=== PATIENT | male | born 1970 | race Caucasian/White ===

== ENCOUNTER 2022-11-04 08:54 | Emergency (ER) | payer OTHER ==
[~2022-11-04] VITALS: Ht 172.7 cm; Wt 72.6 kg
[~2022-11-04 08:54] MED LIST: AZIT250 PO; CEPH500 PO; CLIN300 PO; CRUTCH3 USE; GUAPHELA PO; HYDACE5 PO; HYDGUAL120 PO; NAPR500 PO; NAPR550 PO; RANI150 PO; RXHYDACE PO; RXNAPNA550 PO
[2022-11-04 09:01] VITALS: BP 130/80
[2022-11-04] MEDS ORDERED: NASACORT10.8 ML (09:23)
[2022-11-04] MEDS ORDERED: PRED10 PO (09:23)
[2022-11-04] MEDS ORDERED: ZYRTEC10 M2 PO (09:30)
== END 2022-11-04 09:46 | disposition home or self-care (01) ==
LOC: ER 08:54
DX: T78.40XA Allergy, unspecified, initial encounter (principal); R21 Rash and other nonspecific skin eruption; Z88.0 Allergy status to penicillin; Z79.899 Other long term (current) drug therapy; Z79.52 Long term (current) use of systemic steroids; F17.200 Nicotine dependence, unspecified, uncomplicated
CPT/HCPCS: J7512

== ENCOUNTER 2023-01-10 09:39 | Emergency (ER) | payer OTHER ==
[~2023-01-10] VITALS: Ht 172.7 cm; Wt 70.3 kg
[~2023-01-10 09:39] MED LIST changes: +NASACORT10.8 ML; +PRED10 PO; +ZYRTEC10 M2 PO
[2023-01-10 09:45] VITALS: BP 140/77
[2023-01-10] MEDS ORDERED: LIDO700A20 TOP (11:33)
[2023-01-10] MEDS ORDERED: TRAM50 PO (11:33)
== END 2023-01-10 11:45 | disposition home or self-care (01) ==
LOC: ER 09:39
DX: S22.31XA Fracture of one rib, right side, initial encounter for closed fracture (principal); F17.210 Nicotine dependence, cigarettes, uncomplicated; Z88.0 Allergy status to penicillin; X50.1XXA Overexertion from prolonged static or awkward postures, initial encounter
CPT/HCPCS: 93005; 93010; 99283-25; A9270

== ENCOUNTER 2023-05-09 09:22 | Emergency (ER) | payer OTHER ==
[~2023-05-09] VITALS: Ht 172.7 cm; Wt 70.3 kg
[~2023-05-09 09:22] MED LIST changes: +LIDO700A20 TOP; +TRAM50 PO
[2023-05-09 10:26] VITALS: BP 173/89
[2023-05-09 11:18] LABS: BASOPHILS ABSOLUTE AUTO 0.06 K/mm3 (0.00-0.23); BASOPHILS PERCENT AUTO 1 % (0-2); EOSINOPHILS ABSOLUTE AUTO 0.14 K/mm3 (0.00-0.68); EOSINOPHILS PERCENT AUTO 2 % (0-6); Hematocrit 48.1 % (37.0-53.0); Hemoglobin 16.2 g/dL (13.5-17.5); IMMATURE GRAN ABSOLUTE AUTO 0.29 K/mm3 (0.00-0.10); IMMATURE GRAN PERCENT AUTO 4 % (0-1); LYMPHOCYTES ABSOLUTE AUTO 2.24 K/mm3 (0.84-5.20); LYMPHOCYTES PERCENT AUTO 31 % (21-46); MONOCYTES PERCENT AUTO 8 % (4-13); Mean Corpuscular HGB 32.3 pg (26.0-34.0); Mean Corpuscular HGB Conc 33.7 g/dL (31.5-36.5); Mean Corpuscular Volume 96 fL (80-100); Mean Platelet Volume 9.2 fL (9.1-12.4); NEUTROPHILS ABSOLUTE AUTO 3.82 K/mm3 (1.96-9.15); NEUTROPHILS PERCENT AUTO 53 % (41-73); Platelet Count 228 K/mm3 (150-400); RDW Coefficient Variation 12.9 % (11.7-14.2); RDW Standard Deviation 46.3 fL (35.1-46.3); Red Blood Cell Count 5.02 M/mm3 (4.30-5.90); White Blood Cell Count 7.15 K/mm3 (4.00-11.30)
[2023-05-09 11:49] LABS: Alanine Aminotransfer (ALT/SGP 25 U/L (12-78); Albumin, Blood 3.9 g/dL (3.4-5.0); Albumin/Globulin Ratio 1.1 (0.8-1.8); Alk Phos 75 U/L (50-136); Anion Gap 2 mmol/L (6-16); Aspartate Aminotrans (AST/SGOT 22 U/L (12-37); Bilirubin, Total 0.3 mg/dL (0.1-1.0); Blood Urea Nitrogen 13 mg/dL (8-24); Bun/Creatinine Ratio 13.9 (12.0-20.0); C-REACTIVE PROTEIN, EXT RANGE <0.290 mg/dL (0.000-0.300); CO2, Blood 27 mmol/L (21-32); Calcium, Blood 8.9 mg/dL (8.5-10.1); Chloride, Blood 107 mmol/L (98-108); Creatinine, Blood 0.93 mg/dL (0.60-1.20); Globulin, Blood 3.6 g/dL (2.2-4.0); Glomerular Filtration Rate 99 (60-); Glucose, Blood 99 mg/dL (70-99); Potassium, Blood 4.5 mmol/L (3.5-5.5); Sodium, Blood 136 mmol/L (136-145); Total Protein, Blood 7.5 g/dL (6.4-8.2)
[2023-05-09] MEDS ORDERED: ALEVAZOL56.7 G1 TOP (12:09)
== END 2023-05-09 12:21 | disposition home or self-care (01) ==
LOC: ER 09:22
PROVIDERS: Emergency Medicine
DX: B35.4 Tinea corporis (principal); Z88.0 Allergy status to penicillin; Z79.899 Other long term (current) drug therapy; F17.210 Nicotine dependence, cigarettes, uncomplicated
CPT/HCPCS: 80053; 85025; 86140; 99283

== ENCOUNTER 2023-11-07 14:17 | Emergency (ER) | payer OTHER ==
[~2023-11-07] VITALS: Ht 170.2 cm; Wt 72.6 kg
[~2023-11-07 14:17] MED LIST changes: +ALEVAZOL56.7 G1 TOP
[2023-11-07] MEDS ORDERED: Acetaminophen 500 MG Tab PO ONE (15:50)
[2023-11-07] MEDS ORDERED: Ketorolac Tromethamine 30mg Vial IM ONE (15:50)
[2023-11-07 16:00] VITALS: BP 108/74
== END 2023-11-07 16:08 | disposition home or self-care (01) ==
LOC: ER 14:17
DX: M17.11 Unilateral primary osteoarthritis, right knee (principal); M25.562 Pain in left knee; M25.511 Pain in right shoulder; Z88.0 Allergy status to penicillin; Z79.899 Other long term (current) drug therapy
CPT/HCPCS: 96372; 99282-25; A9270; J1885

== ENCOUNTER 2024-04-27 08:47 | Day surgery (SDC) | payer OTHER ==
[~2024-04-27] VITALS: Ht 170.2 cm; Wt 69.6 kg
[~2024-04-27 08:47] MED LIST changes: +Bupivacaine 0.5% HCl 5 MG/ML 30MLVIAL ONE; +CYCL10 PO; +Dexamethasone Sod Phos 10 MG/ML 1ML VIAL ONE; +FentaNYL Citrate 50 MCG/ML 2 ML Injection ONE; +IBUP200 PO; +Ketorolac Tromethamine 30mg Vial ONE; +MASOPHEN500 M3 PO; +Midazolam HCl 1MG / ML 2ML Vial ONE; +Ondansetron HCl 2 MG / ML 2ML Vial ONE; +Rocuronium Bromide 10 MG/ML 5ML Injection IV ONE; +Sugammadex Sodium 200 MG/2ML SDV (100 MG/ML) ONE; +TAMS.4ER PO; +propofoL 20 ML IV ONE
[2024-04-27] MEDS ORDERED: Tranexamic Acid 100 ML IV ONE (08:57)
[2024-04-27] MEDS ORDERED: Lactated Ringer's 1,000 ML IV ONE ×2 (09:31→11:55)
[2024-04-27] MEDS ORDERED: CeFAZolin Sodium 2,000 MG VIAL ONE (10:24)
[2024-04-27] MEDS ORDERED: NS 50 ML IV ONE (10:25)
--- NOTE | 2024-04-27 10:55 | NUR ---
04/27/24 1055 Doc Olmstead, BLOCK TIMEOUT 1040 BLOCK STARTED 1046 BLOCK FINISHED 1050
[2024-04-27] MEDS ORDERED: Lidocaine 1%-Epineph 1:100000 20 ML MDV INJ ONE (11:23)
[2024-04-27] MEDS ORDERED: EPINEPhrine HCl 1 MG/ML 1ML Amp XX ONE (11:23)
--- NOTE | 2024-04-27 11:33 | NUR ---
04/27/24 1133 Elma Akers 1 GM STARTED AT [address] ANDREWS.
[2024-04-27] MEDS ORDERED: Rocuronium Bromide 10 MG/ML 5ML Injection IV ONE (11:56)
--- NOTE | 2024-04-27 13:27 | NUR ---
04/27/24 1327 Rachel Hager PT UP TO CHAIR 1310 , HR IN 40S. PT STS NORMAL FOR HIM TO BE LOW 40S, 50S.
[2024-04-27 13:30] VITALS: BP 114/72
== END 2024-04-27 14:00 | disposition home or self-care (01) ==
LOC: ORSCSDS 08:47
PROVIDERS: Orthopaedic Surgery Sports Medicine
PROC: 0RNJ4ZZ Release Right Shoulder Joint, Percutaneous Endoscopic Approach (ICD-10-PCS; principal; 2024-04-27 10:30)
PROC: 0R5J4ZZ Destruction of Right Shoulder Joint, Percutaneous Endoscopic Approach (ICD-10-PCS; principal; 2024-04-27 10:30)
PROC: 0LM14ZZ Reattachment of Right Shoulder Tendon, Percutaneous Endoscopic Approach (ICD-10-PCS; principal; 2024-04-27 10:30)
DX: M75.121 Complete rotator cuff tear or rupture of right shoulder, not specified as traumatic (principal); F17.210 Nicotine dependence, cigarettes, uncomplicated
CPT/HCPCS: C1713; J0171; J0690; J1100; J1885; J2250; J2405; J2704; J3010; J7120

== ENCOUNTER 2024-08-21 08:54 | Emergency (ER) | payer OTHER ==
[~2024-08-21] VITALS: Ht 167.6 cm; Wt 72.6 kg
[~2024-08-21 08:54] MED LIST changes: -Bupivacaine 0.5% HCl 5 MG/ML 30MLVIAL ONE; -Dexamethasone Sod Phos 10 MG/ML 1ML VIAL ONE; -FentaNYL Citrate 50 MCG/ML 2 ML Injection ONE; -Ketorolac Tromethamine 30mg Vial ONE; -Midazolam HCl 1MG / ML 2ML Vial ONE; -Ondansetron HCl 2 MG / ML 2ML Vial ONE; -Rocuronium Bromide 10 MG/ML 5ML Injection IV ONE; -Sugammadex Sodium 200 MG/2ML SDV (100 MG/ML) ONE; -propofoL 20 ML IV ONE
[2024-08-21 09:13] LABS: BASOPHILS ABSOLUTE AUTO 0.05 K/mm3 (0.00-0.23); BASOPHILS PERCENT AUTO 1 % (0-2); EOSINOPHILS ABSOLUTE AUTO 0.21 K/mm3 (0.00-0.68); EOSINOPHILS PERCENT AUTO 4 % (0-6); Hematocrit 45.7 % (37.0-53.0); Hemoglobin 15.8 g/dL (13.5-17.5); IMMATURE GRAN ABSOLUTE AUTO 0.06 K/mm3 (0.00-0.10); IMMATURE GRAN PERCENT AUTO 1 % (0-1); LYMPHOCYTES PERCENT AUTO 38 % (21-46); MONOCYTES ABSOLUTE AUTO 0.49 K/mm3 (0.16-1.47); MONOCYTES PERCENT AUTO 9 % (4-13); Mean Corpuscular HGB 31.6 pg (26.0-34.0); Mean Corpuscular HGB Conc 34.6 g/dL (31.5-36.5); Mean Corpuscular Volume 91 fL (80-100); Mean Platelet Volume 8.7 fL (9.1-12.4); NEUTROPHILS ABSOLUTE AUTO 2.75 K/mm3 (1.96-9.15); NEUTROPHILS PERCENT AUTO 48 % (41-73); Platelet Count 270 K/mm3 (150-400); RDW Coefficient Variation 12.4 % (11.7-14.2); RDW Standard Deviation 41.9 fL (35.1-46.3); White Blood Cell Count 5.76 K/mm3 (4.00-11.30)
[2024-08-21 09:37] LABS: Albumin, Blood 4.1 g/dL (3.4-5.0); Albumin/Globulin Ratio 1.1 (0.8-1.8); Bilirubin, Total 0.6 mg/dL (0.1-1.0); Bun/Creatinine Ratio 13.3 (12.0-20.0); Calcium, Blood 9.5 mg/dL (8.5-10.1); Creatinine, Blood 0.9 mg/dL (0.60-1.20); Globulin, Blood 3.8 g/dL (2.2-4.0); Potassium, Blood 4.5 mmol/L (3.5-5.5); Total Protein, Blood 7.9 g/dL (6.4-8.2)
[2024-08-21] MEDS ORDERED: Acetaminophen 325 MG TABLET PO ONE (11:50)
[2024-08-21 12:13] VITALS: BP 108/76
== END 2024-08-21 12:13 | disposition home or self-care (01) ==
LOC: ER 08:54
PROVIDERS: Physician Assistant
DX: M94.0 Chondrocostal junction syndrome [Tietze] (principal); F17.200 Nicotine dependence, unspecified, uncomplicated; Z88.0 Allergy status to penicillin
CPT/HCPCS: 71046; 80053; 83880; 84443; 84484; 85025; 93005; 93010; 99284-25

== ENCOUNTER 2024-10-07 06:19 | Day surgery (SDC) | payer OTHER ==
[~2024-10-07] VITALS: Ht 170.2 cm; Wt 70.2 kg
[2024-10-07] VITALS (13 sets, daily range): BP systolic 113–188; BP diastolic 66–93
[~2024-10-07 06:19] MED LIST changes: +DULO30 PO; +Dexamethasone Sod Phos 10 MG/ML 1ML VIAL ONE; +Dexmedetomidine HCL 200 MCG / 2 ML ONE; +Ketorolac Tromethamine 30mg Vial ONE; +Lidocaine HCl 2% 20 ML MDV ONE; +Ondansetron HCl 2 MG / ML 2ML Vial ONE; +Ropivacaine 0.5% HCL/PF 5 MG/ML 30ML Vial ONE; +propofoL 50 ML IV ONE
[2024-10-07] MEDS ORDERED: Lactated Ringer's 1,000 ML IV SCH (06:20)
[2024-10-07] MEDS ORDERED: CeFAZolin Sodium 2,000 MG in NS 100 ML IV SCH (06:20)
[2024-10-07] MEDS ORDERED: TAMS.4ER PO (06:32)
[2024-10-07] MEDS ORDERED: Tranexamic Acid 100 ML IV SCH (06:34)
[2024-10-07] MEDS ORDERED: Acetaminophen 500 MG Tab PO SCH (06:37)
[2024-10-07] MEDS ORDERED: Metoclopramide HCl 5MG / ML 2ML Vial IV PRN (06:45)
[2024-10-07] MEDS ORDERED: FentaNYL Citrate 50 MCG/ML 2 ML Injection IV PRN ×2 (06:45)
[2024-10-07] MEDS ORDERED: HYDROmorphone HCl/Pf 1MG SYR IV PRN ×2 (06:45)
[2024-10-07] MEDS ORDERED: CeFAZolin Sodium 2,000 MG VIAL ONE (06:48)
[2024-10-07] MEDS ORDERED: DiphenhydrAMINE HCl 50 MG/ML 1ML Vial IV PRN (06:50)
[2024-10-07] MEDS ORDERED: Albuterol 2.5 MG/3 ML VIAL INH PRN (06:50)
[2024-10-07] MEDS ORDERED: Ondansetron HCl 2 MG / ML 2ML Vial IV PRN (06:50)
[2024-10-07] MEDS ORDERED: ePHEDrine Sulfate 50 MG/ML 1ML Injection IV PRN (06:50)
[2024-10-07] MEDS ORDERED: Lidocaine 1%-Epineph 1:200000 30 ML SDV ONE (07:18)
[2024-10-07] MEDS ORDERED: EPINEPhrine HCl 1 MG / ML 30ML Vial ONE (07:18)
[2024-10-07] MEDS ORDERED: HYDROmorphone HCl/Pf 1MG SYR ONE ×2 (07:19→09:19)
[2024-10-07] MEDS ORDERED: Metoclopramide HCl 5MG / ML 2ML Vial ONE (07:41)
[2024-10-07] MEDS ORDERED: Ketamine HCl 100 MG / ML 5ML Vial ONE (07:43)
[2024-10-07] MEDS ORDERED: Glycopyrrolate 0.2 MG/ML 5ML VIAL ONE (07:43)
[2024-10-07] MEDS ORDERED: ePHEDrine Sulfate 50 MG/ML 1ML Injection ONE (07:48)
[2024-10-07] MEDS ORDERED: FentaNYL Citrate 50 MCG/ML 2 ML Injection ONE (09:05)
[2024-10-07] MEDS ORDERED: OxyCODONE HCL 5 MG TAB PO PRN (09:40)
--- NOTE | 2024-10-07 10:31 | NUR ---
Discharge instructions reviewed with patient. Patient verbalizes understanding. Copy given to patient to take home. Abilio-wrap c/d/i. Cap refill <3 sec. Polar pack sent with pt. Crutches to be picked up at 's office. Prescription sent electronically to [facility]. Patient States Post-Procedure ride home has been arranged. Discharged via wheelchair to private car for ride home.
== END 2024-10-07 10:35 | disposition home or self-care (01) ==
LOC: ORSCMMR 06:19 → ORD 07:30 → ORSCMMR 10:35
PROVIDERS: Orthopaedic Surgery Sports Medicine
PROC: 0QPB04Z Removal of Internal Fixation Device from Right Lower Femur, Open Approach (ICD-10-PCS; principal; 2024-10-07 07:30)
PROC: 0SBC4ZZ Excision of Right Knee Joint, Percutaneous Endoscopic Approach (ICD-10-PCS; principal; 2024-10-07 07:30)
DX: S83.241A Other tear of medial meniscus, current injury, right knee, initial encounter (principal); T84.84XA Pain due to internal orthopedic prosthetic devices, implants and grafts, initial encounter; E78.5 Hyperlipidemia, unspecified; Z87.891 Personal history of nicotine dependence; G47.33 Obstructive sleep apnea (adult) (pediatric); Z79.899 Other long term (current) drug therapy
CPT/HCPCS: A9270; C1713; J0171; J0690; J1100; J1171; J1885; J2405; J2704; J2765; J2795; J3010; J7120

== ENCOUNTER 2024-10-27 02:02 | Day surgery (SDC) | payer OTHER ==
[~2024-10-27 02:02] MED LIST changes: +Cosyntropin 0.25 MG / ML 1ML Vial IV SCH; -Dexamethasone Sod Phos 10 MG/ML 1ML VIAL ONE; -Dexmedetomidine HCL 200 MCG / 2 ML ONE; -Ketorolac Tromethamine 30mg Vial ONE; -Lidocaine HCl 2% 20 ML MDV ONE; -Ondansetron HCl 2 MG / ML 2ML Vial ONE; -Ropivacaine 0.5% HCL/PF 5 MG/ML 30ML Vial ONE; -propofoL 50 ML IV ONE
[2024-10-27] MEDS ORDERED: Cosyntropin 0.25 MG / ML 1ML Vial IV ONE (09:30)
== END 2024-10-27 11:07 | disposition home or self-care (01) ==
LOC: ATC 02:02
DX: R42 Dizziness and giddiness (principal); G47.33 Obstructive sleep apnea (adult) (pediatric); E78.5 Hyperlipidemia, unspecified; F17.200 Nicotine dependence, unspecified, uncomplicated; Z88.0 Allergy status to penicillin; Z88.1 Allergy status to other antibiotic agents; Z88.8 Allergy status to other drugs, medicaments and biological substances; Z79.899 Other long term (current) drug therapy
CPT/HCPCS: 80400; 82533; 96374; J0834

== ENCOUNTER 2025-03-28 18:39 | Emergency (ER) | payer OTHER ==
[~2025-03-28] VITALS: Ht 170.2 cm; Wt 70.3 kg
[~2025-03-28 18:39] MED LIST changes: -Cosyntropin 0.25 MG / ML 1ML Vial IV SCH
[2025-03-28 19:22] LABS: BASOPHILS ABSOLUTE AUTO 0.04 K/mm3 (0.00-0.23); BASOPHILS PERCENT AUTO 1 % (0-2); EOSINOPHILS ABSOLUTE AUTO 0.18 K/mm3 (0.00-0.68); EOSINOPHILS PERCENT AUTO 3 % (0-6); Hematocrit 42.6 % (37.0-53.0); Hemoglobin 14.8 g/dL (13.5-17.5); IMMATURE GRAN ABSOLUTE AUTO 0.10 K/mm3 (0.00-0.10); IMMATURE GRAN PERCENT AUTO 2 % (0-1); LYMPHOCYTES ABSOLUTE AUTO 2.58 K/mm3 (0.84-5.20); LYMPHOCYTES PERCENT AUTO 43 % (21-46); MONOCYTES ABSOLUTE AUTO 0.33 K/mm3 (0.16-1.47); MONOCYTES PERCENT AUTO 6 % (4-13); Mean Corpuscular HGB Conc 34.7 g/dL (31.5-36.5); Mean Corpuscular Volume 93 fL (80-100); NEUTROPHILS ABSOLUTE AUTO 2.73 K/mm3 (1.96-9.15); NEUTROPHILS PERCENT AUTO 46 % (41-73); NRBC ABSOLUTE 0.00 K/mm3 (0.00-0.02); NRBC Auto 0.0 /100 WBC (0.0-0.2); Platelet Count 219 K/mm3 (150-400); RDW Coefficient Variation 12.7 % (11.7-14.2); RDW Standard Deviation 43.7 fL (35.1-46.3)
[2025-03-28 20:06] LABS: Alanine Aminotransfer (ALT/SGP 23.0 U/L (12-78); Albumin, Blood 3.7 g/dL (3.4-5.0); Albumin/Globulin Ratio 1.1 (0.8-1.8); Anion Gap 8.0 mmol/L (3-11); Aspartate Aminotrans (AST/SGOT 26.0 U/L (12-37); Bilirubin, Total 0.3 mg/dL (0.1-1.0); Blood Urea Nitrogen 8.0 mg/dL (8-24); CO2, Blood 27.0 mmol/L (21-32); Calcium, Blood 8.9 mg/dL (8.5-10.1); Chloride, Blood 105.0 mmol/L (98-108); Creatinine, Blood 0.43 mg/dL (0.60-1.20); Globulin, Blood 3.4 g/dL (2.2-4.0); Glucose, Blood 98.0 mg/dL (70-99); Potassium, Blood 3.9 mmol/L (3.5-5.5); Sodium, Blood 136.0 mmol/L (136-145); Total Protein, Blood 7.1 g/dL (6.4-8.2)
[2025-03-28 20:46] LABS: Source, Urine Clean Catch
[2025-03-28 20:49] LABS: Bilirubin, Urine Neg (Neg); Color, Urine Yellow (P-Yellow); Glucose Qualitative, Urine Neg (Neg); Ketones, Urine Neg (Neg); Leukocyte Esterase, Urine Neg (Neg); Protein, Urine Neg (Neg); Specific Gravity, Urine 1.015 (1.003-1.022); Urobilinogen, Urine NORM (Normal)
[2025-03-28] MEDS ORDERED: ACET500 PO (21:54)
[2025-03-28] MEDS ORDERED: LEVFLO500 PO (21:54)
[2025-03-28] MEDS ORDERED: IBUP600 PO (21:54)
[2025-03-28] MEDS ORDERED: Morphine Sulfate 4 MG/1 ML Injection IV ONE (21:55)
[2025-03-28] MEDS ORDERED: Ketorolac Tromethamine 15mg Vial IV ONE (21:55)
[2025-03-28 22:20] VITALS: BP 109/72
== END 2025-03-28 22:20 | disposition home or self-care (01) ==
LOC: ER 18:39
PROVIDERS: Physician Assistant
DX: N45.1 Epididymitis (principal); Z88.0 Allergy status to penicillin; Z91.048 Other nonmedicinal substance allergy status; Z79.899 Other long term (current) drug therapy
CPT/HCPCS: 76870; 80053; 81003; 85025; 96374; 96375; 99284-25; A9270; J1885; J2270